=== PATIENT | female | born 1975 | race African-American/Black ===

== ENCOUNTER 2021-08-03 23:52 | Emergency (ER) | payer OTHER ==
[~2021-08-03] VITALS: Ht 165.1 cm; Wt 68.0 kg
[~2021-08-03 23:52] MED LIST: DARVOCET-N 1001 EACH PO; FLAGYL500 MG PO; FLEXERIL PO; FLOMAX0.4 MG PO; IBUPROFEN 800800 M1 PO; NOHOMEMEDICATIONS; ONDANSETRON HCL4 M2 PO; PERCOCET PO; ULTRAM 50MG TAB50 MG PO
[2021-08-04 00:07] VITALS: BP 121/55
== END 2021-08-04 01:42 | disposition left against medical advice (07) ==
LOC: M.ERS 23:52
DX: R11.2 Nausea with vomiting, unspecified (principal); Z53.21 Procedure and treatment not carried out due to patient leaving prior to being seen by health care provider